=== PATIENT | female | born 1960 | race Caucasian/White ===

== ENCOUNTER 2022-03-23 09:20 | Emergency (ER) | payer BC, OTHER ==
--- NOTE | 2022-03-23 12:04 | ED Physician Documentation ---
History of Present Illness - Stated complaint Stated Complaint: STOMACH PAIN - Chief complaint Chief Complaint: Abd Pain - History obtained from History obtained from: Patient - Additonal information Additional information: The patient comes to the emergency department with chief complaint of swelling, redness, and pain in her upper abdominal wall. The patient states that she has noticed a lump there for the last approximately month but that it has been getting worse and now, is red and more painful. No fevers or chills. No drainage. Patient had a gastric bypass about 2 and half years ago but has had no trouble since. She denies any deeper abdominal pain or issues with eating. No other complaints at this time. Review of Systems Ten Systems: 10 systems reviewed and negative Constitutional: reports: Reviewed and negative Eyes: reports: Reviewed and negative Ears: reports: Reviewed and negative Nose: reports: Reviewed and negative Throat: reports: Reviewed and negative Cardiac: reports: Reviewed and negative Respiratory: reports: Reviewed and negative GI: reports: Reviewed and negative : reports: Reviewed and negative Skin: reports: Other (Redness and pain) Musculoskeletal: reports: Reviewed and negative Neurologic: reports: Reviewed and negative Psychiatric: reports: Reviewed and negative Endocrine: reports: Reviewed and negative Immunocompromised: reports: Reviewed and negative PD PAST MEDICAL HISTORY - Present Medications Home Medications: Ambulatory Orders Medication Instructions Recorded Confirmed cephALEXin [Keflex] 500 mg PO Q6H #28 cap 03/23/22 - Allergies Allergies/Adverse Reactions: Allergies Allergy/AdvReac Type Severity Reaction Status Date / Time No Known Drug Allergies Allergy Verified 03/23/22 09:37 PD ED PE NORMAL - Vitals Vital signs reviewed: Yes - General General: Alert and oriented X 3, No acute distress, Well developed/nourished - HEENT HEENT: Atraumatic, PERRL, EOMI, Moist mucous membranes - Neck Neck: Supple, no meningeal sign - Respiratory Respiratory: No respiratory distress - Abdomen Abdomen: Soft, Non tender, Other (Moderate obesity; approximately 4 x 3 cm area of erythema and induration without fluctuance over right superomedial abdominal wall.) - Derm Derm: Warm and dry - Extremities Extremities: No deformity - Neuro Neuro: Alert and oriented X 3 - Psych Psych: Normal mood, Normal affect Results - Vitals Vitals: Vital Signs - 24 hr 03/23/22 03/23/22 09:33 12:39 Temperature 36.4 C L 36.5 C Heart Rate 81 80 Respiratory 20 16 Rate Blood Pressure 149/60 H 145/65 H O2 Saturation 96 98 Oxygen O2 Source Room air - Rads (name of study) Ultrasound soft tissue abdomen Radiology: Prelim report reviewed (Soft tissue inflammation and edema with tiny fluid collection centrally located) PD Medical Decision Making - ED course Complexity details: reviewed results, re-evaluated patient, considered differential, d/w patient ED course: The patient appeared to have a localized cellulitis of her abdominal wall. An ultrasound was obtained to evaluate for fluid collection, and this showed what appeared to be soft tissue inflammation with only a tiny fluid centrally. I discussed with the patient that at this point in time, this is too small to I&D and we will treat with antibiotics. There is no evidence of a fistula or other underlying condition that is more serious. Discussed the usual indications for follow-up and return.. Departure - Departure Disposition: 01 Home, Self Care Clinical Impression: Cellulitis Qualifiers: Site of cellulitis: trunk Site of cellulitis of trunk: abdominal wall Qualified Code(s): L03.311 - Cellulitis of abdominal wall Condition: Stable Instructions: ED Infec Skin Cellulitis Prescriptions: cephALEXin [Keflex] 500 mg PO Q6H #28 cap Comments: Your ultrasound shows a very tiny fluid collection within the red area. This really is not big enough to cut open at this point in time and will likely respond very well to antibiotics. There is no evidence of any connection with deeper structures. You have been given your first dose of antibiotics here in the emergency department. The prescription for the rest your antibiotics has been electronically transmitted to the [facility] pharmacy here in [place] at your request. Please pick this up today and take the rest of your antibiotics as directed. Discharge Date/Time: 03/23/22 12:40
[2022-03-23] MEDS: cephALEXin 250 MG CAPSULE PO STA (12:32)
[2022-03-23 12:40] VITALS: BP 145/65
--- NOTE | 2022-03-23 12:58 | Ultrasound Report ---
PROCEDURE: Abdomen Limited INDICATIONS: abdominal wall infection TECHNIQUE: Real-time focused scanning was performed of the abdomen, with image documentation. COMPARISON: None FINDINGS: The area of concern, in the midline epigastric anterior area was imaged with a high megahe rtz linear transducer. The underlying superficial tissues are edematous. There is a small fluid colle ction measuring 1.8 x 1.0 x 2.2 cm. IMPRESSION: Findings may represent a very superficial small subcutaneous abscess. Comment: Preliminary findings were given by the community support professional to the referring clinician at the time of completion of the study. Reviewed by: Shamar Subramanian MD on 03/23/2022 12:56 PM PST Approved by: Shamar Subramanian MD on 03/23/2022 12:56 PM PST Station ID: [id number]
== END 2022-03-23 12:40 | disposition home or self-care (01) ==
LOC: ED 09:20
DX: L03.311 Cellulitis of abdominal wall (principal)
CPT/HCPCS: 76705; 99282; 99284; A9270

== ENCOUNTER 2022-08-22 09:15 | Outpatient (CLI) | payer BC ==
[2022-08-22 20:21] LABS: BASOPHILS # (AUTO) 0.1 10^3/uL (0.0-0.1); BASOPHILS % (AUTO) 0.7 %; EOSINOPHILS # (AUTO) 0.2 10^3/uL (0.0-0.7); EOSINOPHILS % (AUTO) 2.3 %; HCT - HEMATOCRIT 48.6 % (37.0-47.0); HGB - HEMOGLOBIN 15.2 g/dL (12.0-16.0); LYMPHOCYTES # (AUTO) 2.4 10^3/uL (1.5-3.5); LYMPHOCYTES % (AUTO) 27.9 %; MEAN CORPUSCULAR HEMOGLOBIN 29.9 pg (27.0-31.0); MEAN CORPUSCULAR HGB CONC 31.3 g/dL (32.0-36.0); MEAN CORPUSCULAR VOLUME 95.7 fL (81.0-99.0); MEAN PLATELET VOLUME 11.5 fL (7.9-10.8); MONOCYTES # (AUTO) 0.6 10^3/uL (0.0-1.0); MONOCYTES % (AUTO) 6.7 %; NEUTROPHILS # (AUTO) 5.3 10^3/uL (1.5-6.6); NEUTROPHILS % (AUTO) 62.2 %; PLT - PLATELET COUNT 240 10^3/uL (130-450); RED BLOOD COUNT 5.08 10^6/uL (4.20-5.40); RED CELL DISTRIBUTION WIDTH 13.4 % (12.0-15.0); WHITE BLOOD COUNT 8.5 x10^3/uL (4.8-10.8)
[2022-08-22 20:55] LABS: ALBUMIN 4.1 g/dL (3.2-5.5); ALBUMIN/GLOBULIN RATIO 1.1 (1.0-2.2); BILIRUBIN,TOTAL 0.7 mg/dL (0.2-1.0); CALCIUM 8.8 mg/dL (8.5-10.3); CREATININE 0.7 mg/dL (0.4-1.0); POTASSIUM 4.3 mmol/L (3.5-5.0); TOTAL PROTEIN 7.7 g/dL (6.7-8.2)
[2022-08-22 21:00] LABS: ESTIMATED AVERAGE GLUCOSE 111 mg/dL (70-100); HEMOGLOBIN A1c% 5.5 % (4.27-6.07); THYROID STIMULATING HORMONE 1.3 uIU/mL (0.34-5.60)
[2022-08-22 21:01] LABS: FREE T3 2.99 pg/mL (2.5-3.9)
[2022-08-22 21:02] LABS: FREE T4 (FREE THYROXINE) 1.14 ng/dL (0.58-1.64)
== END 2022-08-22 09:30 | disposition home or self-care (01) ==
LOC: LAB.N 09:15
PROVIDERS: ATTEND Registered Nurse
DX: K58.9 Irritable bowel syndrome, unspecified (principal)
CPT/HCPCS: 36415; 80053; 83036; 84439; 84443; 84481; 85025

== ENCOUNTER 2022-10-29 10:20 | Outpatient (CLI) | payer BC ==
--- NOTE | 2022-10-29 15:53 | XRAY Report ---
PROCEDURE: Knee 2 View LT INDICATIONS: CONTUSION OF LEFT KNEE TECHNIQUE: 2 views of the left knee(s) were acquired. COMPARISON: None. FINDINGS: Bones: There is a lucency within the femur metadiaphysis. Soft tissues: Small knee joint effusion. No suspicious soft tissue calcifications or masses. IMPRESSION: Lucency within the femur metadiaphysis, may indicate mildly displaced fracture. Consider correlation with cross-sectional imaging. Reviewed by: Jun Coats on 10/29/2022 3:52 PM PDT Approved by: Jun Coats on 10/29/2022 3:52 PM PDT Station ID: [id number]
--- NOTE | 2022-10-29 15:54 | XRAY Report ---
PROCEDURE: Foot 3 View RT INDICATIONS: CONTUSION OF RIGHT FOOT TECHNIQUE: 3 views of the foot were acquired. COMPARISON: None. FINDINGS: Bones: No fractures or dislocations. No suspicious bony lesions. Soft tissues: No suspicious soft tissue calcifications or masses. IMPRESSION: No acute bony abnormality. Reviewed by: Jun Coats on 10/29/2022 3:53 PM PDT Approved by: Jun Coats on 10/29/2022 3:53 PM PDT Station ID: [id number]
--- NOTE | 2022-10-29 20:02 | XRAY Report ---
PROCEDURE: Lumbar Spine 2 View INDICATIONS: STRAIN OF MUSCLE FASCIA AND TENDON OF LOWER BACK TECHNIQUE: 2 views of the lumbar spine were acquired. COMPARISON: None. FINDINGS: Bones: 5 [id number] vertebrae are present. There is normal bony alignment. No vertebral body compression fractures. No suspicious bony lesions. Lower lumbar spine facet hypertrophy and upper l umbar spine degenerative disc disease noted. Atherosclerotic vascular calcification noted in the aort a Soft tissues: Overlying bowel gas pattern is normal. No suspicious soft tissue calcifications. IMPRESSION: Degenerative disc disease and arthropathy as above Reviewed by: Jimmy Macario MD on 10/29/2022 7:01 PM FAIZA Approved by: Jimmy Macario MD on 10/29/2022 7:01 PM FAIZA Station ID: [id number]
== END 2022-10-29 10:21 | disposition home or self-care (01) ==
LOC: DI 10:20
PROVIDERS: ATTEND Family Medicine
DX: S39.012A Strain of muscle, fascia and tendon of lower back, initial encounter (principal); S80.02XA Contusion of left knee, initial encounter; S90.31XA Contusion of right foot, initial encounter; M51.36 Other intervertebral disc degeneration, lumbar region; M47.816 Spondylosis without myelopathy or radiculopathy, lumbar region

== ENCOUNTER 2022-11-19 09:24 | Outpatient (CLI) | payer OTHER ==
--- NOTE | 2022-11-19 14:53 | CT Report ---
PROCEDURE: LOWER EXTREMITY WO - LT INDICATIONS: CONTUSTION OF LEFT KNEE TECHNIQUE: Noncontrast 3-mm axial sections acquired from the distal tibial shaft to the talar dome, with coronal and sagittal reformats. For radiation dose reduction, the following was used: automated exposure c ontrol, adjustment of mA and/or kV according to patient size. COMPARISON: Left knee radiographs 10/29/2022 FINDINGS: Image quality: Excellent. Bones: Remote prior longitudinal fracture of the patella is seen with partial osseous bridging. Ther e is moderate lateral patellar subluxation. No acute osseous fracture or dislocation is seen. Severe joint space narrowing is seen at the lateral aspect of the patellofemoral joint with subchondral scle rosis, subchondral cystic changes, marginal osteophyte formation, and remodeling of the articular cornell faces. There is mild to moderate medial and lateral femorotibial compartment joint space narrowing wi th marginal osteophyte formation. Soft tissues: Small joint effusion. Suspected small ossified loose body measuring 6 mm in the latera l suprapatellar recess. The articular cartilages, menisci, ligaments, and tendons are not well evalua moy on standard CT. There is generalized mild grade 2 fatty infiltration of the musculature surroundi ng the knee.. IMPRESSION: 1.No acute osseous fracture or dislocation. 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 Moderate lateral patellar subluxation. 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 4.Small joint effusion with a 6 mm ossified intra-articular loose body. Reviewed by: Julio Mejia MD on 11/19/2022 2:52 PM PDT Approved by: Julio Mejia MD on 11/19/2022 2:52 PM PDT Station ID: [id number]
== END 2022-11-19 09:25 | disposition home or self-care (01) ==
LOC: DI 09:24
PROVIDERS: ATTEND Physician Assistant Medical
DX: S80.02XA Contusion of left knee, initial encounter (principal); M84.48XD Pathological fracture, other site, subsequent encounter for fracture with routine healing; M17.12 Unilateral primary osteoarthritis, left knee; M25.462 Effusion, left knee; M23.42 Loose body in knee, left knee

== ENCOUNTER 2023-01-05 11:21 | Outpatient (CLI) | payer BC ==
[2023-01-05 11:53] LABS: CREATININE 0.7 mg/dL (0.6-1.3)
[2023-01-05] MEDS ORDERED: iohexoL-300 100 ML VIAL IVP ONE (18:23)
--- NOTE | 2023-01-05 18:38 | CT Report ---
PROCEDURE: ABDOMEN/PELVIS W INDICATIONS: ABD WALL MASS CONTRAST: 100mL Omni 300 TECHNIQUE: After the administration of oral and intravenous contrast, 5 mm thick sections acquired from the diap hragms to the symphysis. 5 mm thick coronal and sagittal reformats were acquired. For radiation dos e reduction, the following was used: automated exposure control, adjustment of mA and/or kV accordin g to patient size. COMPARISON: None FINDINGS: Image quality: Excellent. Lung bases and heart: Unremarkable. Liver: No solid mass. Gallbladder and biliary tree: Surgically absent. No biliary dilation, accounting for post-cholecystec davi state. Spleen: No splenomegaly. Pancreas: No pancreatic ductal dilation. Adrenals: No adrenal nodule. Kidneys and ureters: No hydronephrosis. No renal cystic lesion which requires follow up. No solid mas s. Bowel and peritoneum: No bowel distension. No pathologic free fluid. Gastric bypass. Prior partial co lectomy. Lymph nodes: No central or retroperitoneal adenopathy. Vessels: No infrarenal aortic aneurysm. PELVIS Reproductive organs: Unremarkable. Bladder: No abnormal wall thickening, accounting for underdistension. Pelvic lymph nodes: No pelvic adenopathy by size criteria. Bones: No aggressive osseous abnormality. Other: [place], ventral wall hernia containing nonobstructed small bowel. The sac measures 9.5 x 4. 8 cm and the neck measures 7.5 cm. IMPRESSION: [place], ventral wall hernia containing nonobstructed small bowel. The sac measures 9.5 x 4.8 cm an d the neck measures 7.5 cm. Reviewed by: Jun Coats on 01/05/2023 6:37 PM PDT Approved by: Jun Coats on 01/05/2023 6:37 PM PDT Station ID: [id number]
== END 2023-01-05 11:22 | disposition home or self-care (01) ==
LOC: LAB 11:21
PROVIDERS: ATTEND Registered Nurse
DX: R22.2 Localized swelling, mass and lump, trunk (principal); K43.9 Ventral hernia without obstruction or gangrene
CPT/HCPCS: 36415; 74177; 82565; Q9967